=== PATIENT | female | born 1960 | race Caucasian/White ===

== ENCOUNTER → 2018-01-29 | Outpatient (CLI) | payer BC ==
[2014-12-21 12:55] VITALS: BP 145/77
[~2018-01-29] MED LIST: DULO30CA2 PO
--- NOTE | 2018-01-29 17:11 | KCIC ---
Bilateral digital screening mammograms: Reason for examination: Routine screening. Comparison is made to previous studies dated 12/21/2014 and 02/23/2014. Interpretation was made with the benefit of CAD. The skin and nipples show no abnormalities. No abnormal axillary lymph nodes are seen. The breast parenchyma is extremely dense. (Breast density: Category D.) There appears to be a new 1 cm circumscribed nodule at the 1:00 position posteriorly in the left breast which probably represents a cyst. There also appears to be an 8 mm circumscribed nodule posterior centrally in the right breast also likely representing a cyst. Further evaluation with ultrasound is recommended. There are no suspicious calcifications or architectural distortion. Impression: New circumscribed nodules seen bilaterally. This patient has history of cysts and these likely represent cysts. Recommend further evaluation with ultrasound. Your patient's mammogram demonstrates that she has dense breast tissue (breast density category C or D), which could hide abnormalities, and if she has other risk factors for breast cancer that have been identified, she might benefit from supplemental screening tests that may be suggested by you as her ordering physician. Dense breast tissue, in and of itself, is a relatively common condition. Therefore, this information is not provided to cause undue concern, but rather to raise your awareness and to promote discussion with your patient regarding the presence of other risk factors, in addition to dense breast tissue. Your patient's mammography results will be sent to her. BI-RAD Category 0: Incomplete. Needs additional imaging evaluation. "Our facility is accredited by the [employer] Mammography Program." This patient's information has been entered into a reminder system for the patient to be notified with the results of her examination and a target date for the next mammogram. Electronically signed by: Mag Russo MD (01/29/2018 5:07 PM) [id number]
== END | disposition home or self-care (01) ==
LOC: KCIC MAMMO 14:00
PROVIDERS: ATTEND Obstetrics & Gynecology
DX: Z12.31 Encounter for screening mammogram for malignant neoplasm of breast (principal)
CPT/HCPCS: 77067

== ENCOUNTER → 2018-02-07 | Outpatient (CLI) | payer BC ==
[2014-12-21 12:55] VITALS: BP 145/77
--- NOTE | 2018-02-07 10:42 | RAD ---
Indication: Callback for abnormal mammogram. TECHNIQUE: Bilateral Limited breast ultrasound. COMPARISON: Previous ultrasound from 11/23/2014. FINDINGS: Right breast: Multiple lesions are as follows: 1.4 x 0.7 x 1.3 cm oval-shaped anechoic mass in the right breast at 11:30 position 1 cm from the nipple with posterior acoustic enhancement and no internal vascularity compatible with simple cyst. 1.2 x 0.8 x 1.3 cm oval-shaped hypoechoic mass without posterior shadowing but with faint internal vascularity which is wider than taller. Left breast: There is a 0.9 x 0.6 x 0.7 cm anechoic round mass at 1:00 position approximately 1 cm from the nipple with posterior acoustic enhancement and no internal vascularity compatible with simple cyst. IMPRESSION: 1. Bilateral breast simple appearing cysts. 2. Solid mass in the right breast without apparent malignant features. Similar masses were also seen on previous ultrasound from 11/23/2014 and were biopsied. Correlate with previous breast biopsy results. BI-RADS 3: Probably benign. Follow-up right breast ultrasound in 6 months recommended. Electronically signed by: Raúl Ascencio DO (02/07/2018 10:38 AM) [facility]
== END | disposition home or self-care (01) ==
LOC: US 09:56
PROVIDERS: ATTEND Obstetrics & Gynecology
DX: N63.11 Unspecified lump in the right breast, upper outer quadrant (principal); N63.21 Unspecified lump in the left breast, upper outer quadrant
CPT/HCPCS: 76641

== ENCOUNTER → 2018-09-08 | Outpatient (CLI) | payer BC ==
[2014-12-21 12:55] VITALS: BP 145/77
--- NOTE | 2018-09-08 15:04 | KCIC ---
Right breast ultrasound HISTORY: Follow-up of probably benign right breast mass. COMPARISON: Right breast ultrasound February 07, 2018 and priors. FINDINGS: 1.2 cm simple cyst right breast 11:30 position 1 cm from the nipple stable. Separately at the right breast 12:00 position 1 cm from the nipple there is an 1.2 cm oval hypoechoic circumscribed nonshadowing complicated cyst or solid mass, this is stable to January 2018. Separately at the right breast 1:00 position 1 cm from the nipple adjacent of the cyst there is a 0.8 cm parallel hypoechoic nonshadowing mass the superficial margin somewhat obscured by shadowing from the overlying nipple, this is stable from January 2018. Findings remain probably benign. IMPRESSION: Probably benign right breast hypoechoic complex cysts or solid masses most likely fibroadenomas. Attention on follow-up right breast ultrasound in 6 months is advised to document continued stability. BI-RADS Category 3: Probably benign Electronically signed by: Gelacio Lockhart MD (09/08/2018 3:01 PM) [id number]
== END | disposition home or self-care (01) ==
LOC: KCIC US 12:55
PROVIDERS: ATTEND Obstetrics & Gynecology
DX: N60.01 Solitary cyst of right breast (principal)
CPT/HCPCS: 76641

== ENCOUNTER → 2019-05-06 | Outpatient (CLI) | payer BC ==
[2014-12-21 12:55] VITALS: BP 145/77
--- NOTE | 2019-05-06 14:24 | KCIC ---
Pelvic ultrasound to include transabdominal and transvaginal imaging 05/06/2019 CLINICAL HISTORY: BRCA2 mutation. Postmenopausal. TECHNIQUE: Using the distended urinary bladder as a sonographic window, a real-time ultrasound examination of the pelvis was performed. Additionally in an attempt to better evaluate the uterus and adnexa, a transvaginal ultrasound study was performed. Multiple images were obtained. FINDINGS: The uterus is within normal limits in size and echogenicity. It measures 5.8 x 3.5 x 2.9 cm in longitudinal, transverse, and AP dimensions. No focal abnormality of the uterus is seen. The endometrial echo complex measures 1.2 mm in thickness which is within normal limits. Both ovaries are within normal limits in size and echogenicity. The right ovary measures 2.5 x 1.9 x 1.6 cm in size. The left ovary measures 2.3 x 2.2 x 0.9 cm in size. Normal color-flow and pulse doppler imaging to both ovaries is seen. No adnexal mass is noted. No free fluid is seen. IMPRESSION: Negative study. Electronically signed by: Anupam Tan MD (05/06/2019 2:21 PM) [facility] [place]
--- NOTE | 2019-05-06 15:20 | KCIC ---
Bilateral diagnostic digital mammograms: Reason for examination: Follow-up examination for right breast nodules. Routine left breast exam. Comparison is made to previous study dated 01/29/2018. Interpretation was made with the benefit of CAD. The skin and nipples show no abnormalities. No abnormal axillary lymph nodes are seen. The breast parenchyma is extremely dense. (Breast density: Category D.) There continues to be some nodularity anterior superiorly right breast which shows no significant change. There are no new dominant masses, suspicious calcifications or architectural distortion. Impression: Nodular asymmetry in the anterior superior right breast. Ultrasound to follow. Your patient's mammogram demonstrates that she has dense breast tissue (breast density category C or D), which could hide abnormalities, and if she has other risk factors for breast cancer that have been identified, she might benefit from supplemental screening tests that may be suggested by you as her ordering physician. Dense breast tissue, in and of itself, is a relatively common condition. Therefore, this information is not provided to cause undue concern, but rather to raise your awareness and to promote discussion with your patient regarding the presence of other risk factors, in addition to dense breast tissue. Your patient's mammography results will be sent to her. BI-RAD Category 0: Incomplete. Needs additional imaging evaluation. Right breast ultrasound: Comparison is made to previous studies dated 09/08/2018 and 02/07/2018. Ultrasound examination of the right breast and axilla was performed. At the 11:30 position 1 cm from the nipple, there continues to be a 9.5 mm cyst. In the 12:00 position 1 cm from the nipple, there continues to be a 1.1 cm hypoechoic circumscribed lesion which is unchanged and probably represents a complicated cyst. In the 1:00 position 1 cm from the nipple, there continues to be a 9.5 mm hypoechoic fibrocystic lesion. No suspicious-appearing nodules are seen. No significant interval change has occurred. No abnormal appearing lymph nodes are seen in the axilla. IMPRESSION: No significant interval change in the nodules at the 11:30, 12:00 and 1:00 positions. No suspicious nodules are seen. Recommend routine mammographic follow-up. BI-RADS Category 2: Benign. "Our facility is accredited by the [employer] Mammography Program." This patient's information has been entered into a reminder system for the patient to be notified with the results of her examination and a target date for the next mammogram. Electronically signed by: Mag Russo MD (05/06/2019 3:17 PM) [id number]
== END | disposition home or self-care (01) ==
LOC: KCIC MAMMO 08:27
PROVIDERS: ATTEND Obstetrics & Gynecology
DX: N64.89 Other specified disorders of breast (principal); N63.11 Unspecified lump in the right breast, upper outer quadrant; N63.12 Unspecified lump in the right breast, upper inner quadrant; Z78.0 Asymptomatic menopausal state
CPT/HCPCS: 76641; 76830; 76856; 77066

== ENCOUNTER → 2020-10-20 | Outpatient (CLI) | payer BC ==
[2014-12-21 12:55] VITALS: BP 145/77
--- NOTE | 2020-10-20 11:02 | KCIC ---
Bilateral digital screening mammograms with 3-D tomosynthesis: Reason for examination: Routine screening. Comparison is made to previous studies dated back to 12/21/2014. Bilateral mammograms in CC and oblique projections were obtained with 2-D imaging and 3-D tomosynthes is imaging on a Siemens Inspiration unit and reviewed on the workstation. Interpretation was made hema clark the benefit of CAD. The skin and nipples show no abnormalities. No abnormal axillary lymph nodes are seen. The breast par enchyma is heterogeneously dense. (Breast density: Category C.) There are circumscribed nodules again seen in the right breast which correspond to cyst seen previously on ultrasound. There are some scat tered punctate benign-appearing calcifications. There are no new dominant masses, suspicious calcific ations or architectural distortion. Impression: No evidence of malignancy. Recommend routine screening. Your patient's mammogram demonstrates that she has dense breast tissue (breast density category C or D), which could hide abnormalities, and if she has other risk factors for breast cancer that have bee n identified, she might benefit from supplemental screening tests that may be suggested by you as her ordering physician. Dense breast tissue, in and of itself, is a relatively common condition. Therefo re, this information is not provided to cause undue concern, but rather to raise your awareness and t o promote discussion with your patient regarding the presence of other risk factors, in addition to d ense breast tissue. Your patient's mammography results will be sent to her. BI-RAD Category 2: Benign. "Our facility is accredited by the [employer] Mammography Program." This patient's information has been entered into a reminder system for the patient to be notified wit h the results of her examination and a target date for the next mammogram. Electronically signed by: Mag Russo MD (10/20/2020 11:00 AM) [id number]
== END ==
LOC: KCIC MAMMO 08:04
PROVIDERS: ATTEND Obstetrics & Gynecology
DX: Z12.31 Encounter for screening mammogram for malignant neoplasm of breast (principal)
CPT/HCPCS: 77063; 77067

== ENCOUNTER → 2020-12-23 | Outpatient (CLI) | payer BC ==
[2014-12-21 12:55] VITALS: BP 145/77
[~2020-12-23] MED LIST changes: +HYDR-2761 PO; +LISI10TA16 PO
[2020-12-23 12:41] LABS: BASO # 0.1 x10^3/uL (0.0-0.2); BASO % 1 % (0-3); EOS # 0.1 x10^3/uL (0.0-0.7); EOS % 3 % (0-3); HEMATOCRIT 39.9 % (36.0-47.0); HEMOGLOBIN 13.7 g/dL (12.0-15.5); LYMPH # 2.1 x10^3/uL (1.0-4.8); LYMPH % 43 % (24-48); MEAN CORPUSCULAR HEMOGLOBIN 33 pg (25-35); MEAN CORPUSCULAR HGB CONC 34 g/dL (31-37); MEAN CORPUSCULAR VOLUME 95 fL (79-100); MONO # 0.4 x10^3/uL (0.0-1.1); MONO % 8 % (0-9); NEUT # 2.2 x10^3/uL (1.8-7.7); NEUT % 46 % (31-73); PLATELET COUNT 376 x10^3/uL (140-400); RED BLOOD COUNT 4.22 x10^6/uL (3.50-5.40); RED CELL DISTRIBUTION WIDTH 12.7 % (11.5-14.5); WHITE BLOOD COUNT 4.9 x10^3/uL (4.0-11.0)
--- NOTE | 2020-12-23 12:42 | EKG ---
[facility] [address] [place] [address] Test Date: 2020-12-23 Test Time: 12:43:32 Pat Name: GIOVANA HUDSON Department: Room: Gender: F Bag Sealer: ELVIA : 1960 Requested By: MICHAEL PERKINS Order Number: [id number] Reading MD: Brett Villalpando Measurements Intervals Cisco Rate: 76 P: 0 WI: 110 QRS: 64 QRSD: 76 T: 30 QT: 394 QTc: 443 Interpretive Statements SINUS RHYTHM MINIMAL NON SPECIFIC ST T WAVE CHANGES Electronically Signed On 12-28-2020 13:37:30 CDT by Brett Villalpando
[2020-12-23 12:53] LABS: ALBUMIN 4.1 g/dL (3.4-5.0); ALBUMIN/GLOBULIN RATIO 1.1 (1.0-1.7); CALCIUM 9.2 mg/dL (8.5-10.1); CREATININE 0.9 mg/dL (0.6-1.0); GFR 64.1; POTASSIUM 3.7 mmol/L (3.5-5.1); TOTAL BILIRUBIN 0.4 mg/dL (0.2-1.0); TOTAL PROTEIN 7.8 g/dL (6.4-8.2)
[2020-12-23 12:55] LABS: BILIRUBIN,URINE NEGATIVE (NEG); CLARITY,URINE CLEAR; COLOR,URINE YELLOW; NITRITE,URINE NEGATIVE (NEG); PROTEIN,URINE NEGATIVE (NEG-TRACE); UROBILINOGEN,URINE 0.2 mg/dL (0.2 mg/dL)
[2020-12-23 13:09] LABS: BACTERIA,URINE 0 /HPF (0-FEW); RBC,URINE 0 /HPF (0-2); WBC,URINE RARE /HPF (0-4)
--- NOTE | 2020-12-23 14:15 | RAD ---
EXAM: Chest, 2 views. HISTORY: Hypertension. COMPARISON: None. FINDINGS: 2 views of the chest are obtained. There is no infiltrate, pleural effusion or pneumothorax . The heart is normal in size. IMPRESSION: No acute pulmonary finding. Electronically signed by: Diane Sherman MD (12/23/2020 2:12 PM) [id number]
== END ==
LOC: SURGPAT 11:45
PROVIDERS: ATTEND Obstetrics & Gynecology
DX: Z01.818 Encounter for other preprocedural examination (principal); I10 Essential (primary) hypertension
CPT/HCPCS: 36415; 71046; 80053; 81001; 85025; 93005

== ENCOUNTER 2021-01-04 06:08 | Observation (INO) | payer BC ==
[2020-12-23 12:17] VITALS: BP 134/73
[2020-12-28 15:01] VITALS: BP 134/73
[~2021-01-04] VITALS: Ht 152.4 cm; Wt 57.1 kg
[2021-01-04] VITALS (10 sets, daily range): BP systolic 88–138; BP diastolic 39–78
[~2021-01-04 06:08] MED LIST changes: -HYDR-2761 PO; +HYDROmorphone 2 MG/ML VIAL IVP PRN; -LISI10TA16 PO; +MORPHINE SULFATE 2 MG/ML INJ. IVP PRN; +PROCHLORPERAZINE 10 MG/2 ML VIAL. IVP PRN; +fentaNYL PF VIAL 100 MCG/2 ML VIAL IVP PRN
[2021-01-04] MEDS: IV RINGERS,LACTATED 1000ML 1,000 ML IV SCH ×2 (06:46→10:34)
[2021-01-04] MEDS ORDERED: LISI10TA16 PO (06:48)
[2021-01-04] MEDS ORDERED: ONDANSETRON PF 4 MG/2 ML VIAL. ONE (06:53)
[2021-01-04] MEDS ORDERED: PROPOFOL 10 MG/ML (20ML) VIAL. IV ONE (06:53)
[2021-01-04] MEDS ORDERED: LIDOCAINE 2% PF 5 ML VIAL. ONE (06:53)
[2021-01-04] MEDS ORDERED: MIDAZOLAM HCL/PF 2 MG/2 ML VIAL. ONE (06:54)
[2021-01-04] MEDS ORDERED: fentaNYL PF VIAL 100 MCG/2 ML VIAL ONE (06:54)
[2021-01-04] MEDS ORDERED: DEXAMETHASONE SOD PHOS 4 MG/ML VIAL ONE ×2 (06:54→06:59)
[2021-01-04] MEDS ORDERED: ROCURONIUM 50 MG/5 ML VIAL. ONE (06:54)
[2021-01-04] MEDS ORDERED: GLYCOPYRROLATE 1 MG/5 ML VIAL. ONE (06:55)
[2021-01-04] MEDS ORDERED: NEOSTIGMINE METHYLSULFATE 5 MG/5 ML SYRINGE. ONE ×2 (06:55→09:52)
[2021-01-04] MEDS ORDERED: 0.9 % SODIUM CHLORIDE 20 ML VIAL. IJ ONE (07:13)
[2021-01-04] MEDS ORDERED: INDIGOTINDISULFONATE SODIUM 40 MG/5 ML AMPUL. ONE (07:13)
[2021-01-04] MEDS ORDERED: ESTROGENS, CONJ VAGINAL CREAM 30GM TUBE. ONE (07:13)
[2021-01-04] MEDS ORDERED: BUPIVACAINE-EPI 0.25% 30 ML VIAL KIT. ONE ×2 (07:13→08:07)
[2021-01-04] MEDS ORDERED: SCOPOLAMINE 1.5MG PATCH. TD ONE (07:30)
[2021-01-04] MEDS ORDERED: PHENYLEPHRINE in 0.9% NACL PF 1 MG/10 ML SYRINGE. IV ONE (08:04)
[2021-01-04] MEDS ORDERED: SEVOFLURANE > 120 MINUTES. IH ONE (08:10)
[2021-01-04] MEDS ORDERED: KETOROLAC 30 MG/ML VIAL. ONE (08:11)
[2021-01-04] MEDS ORDERED: HYDROmorphone 2 MG/ML VIAL ONE (09:10)
[2021-01-04] MEDS ORDERED: diphenhydrAMINE 50 MG/ML VIAL IV PRN (10:15)
[2021-01-04] MEDS ORDERED: MAGNESIUM HYDROXIDE 2,400 MG/30 ML ORAL.SUSP. PO PRN (10:15)
[2021-01-04] MEDS ORDERED: ONDANSETRON PF 4 MG/2 ML VIAL. IV PRN (10:15)
[2021-01-04] MEDS ORDERED: CALCIUM CARBONATE 500 MG TAB.CHEW PO PRN (10:15)
[2021-01-04] MEDS ORDERED: MORPHINE SULFATE 2 MG/ML INJ. IV PRN (10:15)
[2021-01-04] MEDS ORDERED: LACTULOSE 20 GM/30 ML SOLUTION. PO PRN (10:15)
[2021-01-04] MEDS ORDERED: MAG HYDROX/ALUMINUM HYD/SIMETH 30 ML ORAL.SUSP PO PRN (10:15)
[2021-01-04] MEDS ORDERED: SIMETHICONE 80 MG TAB.CHEW PO PRN (10:15)
[2021-01-04] MEDS ORDERED: diphenhydrAMINE HCL 25 MG CAPSULE PO PRN (10:15)
[2021-01-04] MEDS ORDERED: oxyCODONE/APAP 5/325 1 TAB TABLET PO PRN (10:15)
[2021-01-04] MEDS ORDERED: 0.9 % SODIUM CHLORIDE 10 ML DISP.SYRIN. IV PRN (10:15)
[2021-01-04] MEDS ORDERED: NALOXONE 0.4 MG/ML VIAL. IV PRN (10:15)
[2021-01-04] MEDS ORDERED: ZOLPIDEM 5 MG TABLET. PO PRN (10:15)
[2021-01-04] MEDS ORDERED: HYDROcodone/APAP 5/325MG 1 TAB TABLET PO PRN (10:15)
[2021-01-04] MEDS ORDERED: ePHEDrine PF IN SALINE 50 MG/10 ML SYRINGE. IV ONE (10:28)
--- NOTE | 2021-01-04 10:30 | PDOC4 ---
BRIEF OPERATIVE NOTE Date: Jan 04, 2021 Pre-Op Diagnosis BRCA 2 and cystocele Post-Op Diagnosis same Procedure Performed LAVH/BSO/anterior repair Surgeon Dr. Erica Trejo Skilled Nursing Case Manager martin Ceron Anesthesiologist Dr. Robles Anesthesia Type: General Blood Loss 50cc IV Fluid 1200cc Urine Output 200cc clear via quintanilla Specimens Obtained cervix, uterus,bilateral tubes and ovaries, anterior vaginal mucosa Findings small uterus, bilateral tubes and ovaries; short cervix; small cystocele, 2 degree rectocele more evident with relaxation and anesthesia Complications none Operative Note [id number] ERICA TREJO MD Jan 04, 2021 10:30
--- NOTE | 2021-01-04 11:45 | OP ---
DATE OF SURGERY: 01/04/2021 PREOPERATIVE DIAGNOSES: BRCA2 and cystocele. POSTOPERATIVE DIAGNOSES: BRCA2 and cystocele plus a second-degree rectocele more evident upon relaxation with anesthesia. PROCEDURE: Laparoscopic-assisted vaginal hysterectomy, bilateral salpingo-oophorectomy and anterior repair. SURGEON: Erica Trejo MD BIG DATA ADMIN: AR Miller ANESTHESIOLOGIST: Charli Robles MD ANESTHESIA: General. BLOOD LOSS: 50 mL. URINE OUTPUT: 200 mL clear via Sánchez catheter. IV FLUIDS: 1200 mL of crystalloid. SPECIMENS: Cervix, uterus, bilateral tubes and ovaries and anterior vaginal mucosa. FINDINGS: She had a small uterus, bilateral tubes and ovaries, a shortened cervix from a prior cone, a small cystocele that was symptomatic and then a more evident second-degree rectocele that was more obvious upon relaxation with anesthesia. COMPLICATIONS: None. DESCRIPTION OF PROCEDURE: This patient was taken to the operating room, where general anesthesia was placed. The patient was placed in a dorsal lithotomy position in [facility]. The patient's abdomen and vagina were both prepped and draped in the normal sterile fashion and a Sánchez catheter had been inserted under sterile technique. Upon my arrival, a time-out was performed. Once everyone agreed on the patient, the site, the procedure, the antibiotics, the procedure was initiated. Attention was turned to the vagina, where a bivalve speculum was placed and a single-tooth tenaculum was used to grasp the anterior lip of the cervix. A 10 mL of 0.25% Marcaine with epinephrine was used to circumferentially inject around the cervix for both hemodissection and hemostatic purposes later. The Valtchev uterine manipulator was placed through the endocervical os, locked on the single-tooth tenaculum and the bivalve speculum was then removed. Top gloves were discarded and changed. Attention was then turned to the abdomen, where a small infraumbilical skin incision was made with the scalpel. A curved Lizy was used to dissect through the subcuticular layer to the fascia. The 5 mm Visiport was used directly into the abdominal cavity. Opening patient pressure was 3 mmHg. Direct abdominal placement was indeed confirmed via the laparoscope. Carbon dioxide gas was used to then appropriately insufflate the abdominal cavity to maintain a pressure of 15 mmHg. Overhead lights were dimmed. The patient was placed in Trendelenburg position. At this point, right and left lower quadrant ports were placed. There were no adhesions on the anterior abdominal wall, so finding an area clear of any vasculature, making a small incision and placing the 5 mm atraumatic trocars in under direct visualization. A 4-5 mL of air was placed in these trocar cuffs laterally. The camera was then moved to one of these lateral ports to check the umbilical port to make sure it was okay. Once it was assured to be in a good spot, clear of anything, it was also insufflated with the 4-5 mL of air in the trocar cuff. Camera was moved back to the midline. The bowel was gently swept back. Left tube and ovary were elevated, finding the ureter coursing low in the pelvis clearly out of the way. The LigaSure was used to cauterize and cut the infundibulopelvic ligament, taking the left tube and ovary per the patient's request. This was done exactly the same on the right, elevating the right tube and ovary, making sure the ureter was coursing low well out of the way and going high on the infundibulopelvic ligament right under the ovary, cauterizing and cutting, taking the right tube and ovary as well, going through underneath the tube to the uterus and then crossing the round ligament on both sides, cauterizing and cutting. The uterus was then pushed cephalad and the bladder flap was grasped with the [place] and the monopolar hook was used to gently cut across this and make the bladder flap sharply and peel it down. Once the bladder was down, the uterine vessels on the right side were obtained and then staying inside this pedicle, hugging the cervix posteriorly, going through the cardinal and broad ligaments, cauterizing and cutting, getting down to the uterosacral on the right side and then crossing contralaterally because I was on the right side, going over to the left, going inside that round pedicle and getting the uterines, staying inside this and staying vertical, hugging the cervix and uterus, going through the cardinal and broad ligaments, cauterizing and cutting with the LigaSure down to the level of the uterosacral ligament, completely free posteriorly, completely free anteriorly. Bladder was down significantly. Uterus was completely blanched. At this point, there was no active bleeding, so all instruments were removed from the abdomen and attention was turned vaginally. At this point, the patient was taken out of the steep Trendelenburg, overhead lights were placed on, single tooth and Valtchev were removed from the vagina. A weighted speculum was placed in the patient's vagina. Thyroid Iesha clamps were placed on the anterior and posterior lips of the cervix respectively. As the cervix was very shortened from her prior cone, I went barely up and I aired on the side of the cervix, made a circumferential incision with the scalpel and just used the plastic Yankauer tip to gently push it up and create that space. Then, using my finger had the open Ray-Og 4 x 4 to gently push it up and off. The anterior cul-de-sac was digitally and bluntly entered. The Ray-Og was passed off and the curved Laverne was placed in the anterior cul-de-sac. Cervix was elevated and the posterior cul-de-sac was entered sharply. A #0 Vicryl stitch was used to secure the posterior peritoneum to the vaginal cuff. It was tagged with a curved Lizy clamp, needle was cut and passed off. The short weighted vaginal speculum was removed and replaced with the long weighted Amy speculum in the posterior cul-de-sac. At this point, curved Matt clamps x 2 were placed on the patient's left uterosacral ligament, where they were doubly clamped with curved Heaneys, cut with curved Melara scissors and suture ligated x 2 with 0 Vicryl. The second one was taken through the vaginal cuff securing uterosacral ligament to the vaginal cuff, tagging it with a straight Lizy clamp and cutting and passing the needle off. This was done exactly the same on the right side, double clamping the uterosacrals with curved Matt's, cutting with curved Melara scissors, suture ligating x 2 with 0 Vicryl, taking the second one through the vaginal cuff, tagging it with a straight Lizy clamp and cutting and passing the needle off. At this point, the entire left side was free. There was a tiny pedicle on the right side that the right angle was placed around and the vaginal LigaSure was used to cauterize and cut the remaining pedicle. Cervix, uterus, bilateral tubes and ovaries were delivered in total and passed off for permanent pathology. A long Allis was used to grasp the anterior bladder peritoneum. A sponge stick was used to examine the pedicles. The long Amy speculum was removed and replaced with the short weighted vaginal speculum. A 2-0 Vicryl was taken through the anterior bladder peritoneum, left uterosacral ligament, posterior peritoneum and right uterosacral ligament, thus closing the peritoneum in a pursestring-like fashion. Once this was done, the right and left uterosacral tags were clipped. Allises were placed on the anterior vaginal cuff. It was injected with a dilute solution of 1 part local to 4 parts injectable saline, 50 of local and 200 of injectable saline; 20 mL was used on the anterior defect. A 15 blade scalpel was used to make a small incision. Allises were placed here and the Metzenbaum scissors were used to open up the defect to about 1-2 cm below the urethra until the rugae appeared and it was no longer stretched out. Once this was done, opening up and fanning them, the Metzenbaums were used to sharply release the edges and the open Ray-Og 4 x 4s were used to gently peel down the bladder off the anterior vaginal mucosa on both sides. Once this was done, 3 or 4 interrupted 2-0 Vicryl sutures were used to reduce the defect and were tagged and then going back and tying them and reducing the defect. The anterior vaginal mucosa was trimmed with the Metzenbaum scissors and then 2-0 Vicryl was used to close the anterior defect and going down into the cuff and tying it to that posterior cuff tag. A few imbricating sutures were placed with 2-0 Vicryl for excellent results and hemostasis. Once this was done, the cuff was completely hemostatic. She was just very dry and with that repair, I did place a little Premarin cream with vaginal packing in there just for moisture and just to help with that, so that was done. Once that was done, all gloves were discarded and changed. All sponge, lap and needle counts had been correct x 2 by OR personnel before going above. At this point, attention was turned above. Overhead lights were turned back up. The patient was placed back in Trendelenburg. Gas was reinsufflated. Copious irrigation revealed hemostasis. Tisseel was placed over the cuff. I did get Kaleigh to place because the Tisseel ran out quickly in the middle. Kaleigh over the anterior bladder area that was peeled down and the ovarian pedicles and just go back over everything. There was nothing welling up. The right and left pericolic gutters were clear. At the beginning, I did look around at the right upper quadrant, bowel, liver that were grossly normal and took pictures of that. All of the upper areas remained hemostatic. The lower area remained white and powdery with nothing welling. The 4-5 mL of air was taken out of all 3 trocar cuffs. They were all removed individually watching the right and left lower quadrant ports come out and were hemostatic and the cuff remained hemostatic through all of this. Gas was released through that infraumbilical port and then it was removed as well. All 3 port sites were closed with 4-0 nylon at the skin and injected with 10 more mL of 0.25% Marcaine with epinephrine. The patient was then awakened from anesthesia and brought to recovery room in stable condition. ERICA DR: Deena TID: [id number]
--- NOTE | 2021-01-04 19:02 | NUR ---
Pt. stated she was only able to void a small amount but her bladder still feels full and uncomfortable. Bladder scanned at 863cc. Dr. Neil richter per SABA LakhaniN.
--- NOTE | 2021-01-04 19:26 | NUR ---
Pt. stated she would like to ambulate and attempt to void first and she would let the night RN know if she is still unable to void for quintanilla to possibly be replaced or a staight cath.
[2021-01-04] MEDS ORDERED: LORazepam 0.5 MG TABLET PO ONE (19:30)
[2021-01-05 03:00] VITALS: BP 107/63
[2021-01-05 05:09] LABS: CREATININE 0.6 mg/dL (0.6-1.0); GFR 102.3; POTASSIUM 3.8 mmol/L (3.5-5.1)
[2021-01-05 07:00] VITALS: BP 109/68
[2021-01-05] MEDS ORDERED: DULoxetine HCL 30 MG CAPSULE.DR PO SCH (09:00)
--- NOTE | 2021-01-05 09:55 | NUR ---
SW following. Discussed with RN, pt from home with , room air, cardaic diet. Pt had surgery on 01/04/21. RN advised no SW needs, anticipates discharge home today. SW will continue to follow.
[2021-01-05 11:00] VITALS: BP 108/66
--- NOTE | 2021-01-05 11:11 | PDOC ---
SURGICAL PROGRESS NOTE DATE: 01/05/21 TIME: 11:08 Subjective Up in bed doing well upon my exam. Pain minimal, scant VB. Only concern was last night trying to initiate urination, but once able to go last night has had no problems since then. Tolerating PO without difficulty Vital Signs Vital Signs Date Time Temp Pulse Resp B/P (MAP) Pulse Ox O2 Delivery O2 Flow Rate FiO2 01/05/21 07:05 Room Air 01/05/21 07:00 98.2 80 16 109/68 (82) 97 98.2 01/04/21 21:54 3.0 I&O Intake and Output 01/05/21 07:00 Intake Total 2000 ml Output Total 1600 ml Balance 400 ml Intake IV Total 2000 ml Output Urine Total 1550 ml Estimated Blood Loss 50 ml # Voids 3 PATIENT HAS A REYES: No General: Alert, Oriented X3, Cooperative, No acute distress HEENT: Atraumatic Heart: Regular rate Extremities: No clubbing, No cyanosis, No tenderness/swelling Skin: No rashes, No breakdown, No significant lesion Neuro: Normal speech Psych/Mental Status: Mental status NL, Mood NL Labs Laboratory Tests Test 01/05/21 03:05 Hematocrit 30.4 % (36.0-47.0) Sodium Level 136 mmol/L (136-145) Potassium Level 3.8 mmol/L (3.5-5.1) Chloride Level 102 mmol/L (98-107) Carbon Dioxide Level 26 mmol/L (21-32) Anion Gap 8 (6-14) Blood Urea Nitrogen 9 mg/dL (7-20) Creatinine 0.6 mg/dL (0.6-1.0) Estimated GFR (Cockcroft-Gault) 102.3 Glucose Level 95 mg/dL (70-99) Calcium Level 8.0 mg/dL (8.5-10.1) Laboratory Tests Test 01/05/21 03:05 Hematocrit 30.4 % (36.0-47.0) Sodium Level 136 mmol/L (136-145) Potassium Level 3.8 mmol/L (3.5-5.1) Chloride Level 102 mmol/L (98-107) Carbon Dioxide Level 26 mmol/L (21-32) Anion Gap 8 (6-14) Blood Urea Nitrogen 9 mg/dL (7-20) Creatinine 0.6 mg/dL (0.6-1.0) Estimated GFR (Cockcroft-Gault) 102.3 Glucose Level 95 mg/dL (70-99) Calcium Level 8.0 mg/dL (8.5-10.1) I have reviewed the following labs, vitals, nursing Cardiovascular: No pertinent hx Pulmonary: No pertinent hx GI: No pertinent hx Heme/Onc: No pertinent hx Psych: Anxiety Endocrine: No pertinent hx Dermatology: No pertinent hx Assessment/Plan POD #1 s/p LAVH/BSO/anterior repair Routine PO care NPV x 6 weeks light/limited activity x 2 weeks keep scheduled follow up in office as scheduled in one week [place] written ok for OTC ibuprofen, prn NO driving on narcotic pain meds or one week Call or return sooner for any other questions or concerns not limited to but including pain unrelieved with pain meds, increased or unexplained VB or T>100.4 Justicifation of Admission Dx: Justifications for Admission: Justification of Admission Dx: Yes MICHAEL PERKINS MD Jan 05, 2021 11:11
--- NOTE | 2021-01-05 11:27 | NUR ---
Dr. Trejo left a paper rx for pain meds. Pt's pharmacy is in [place]. Pharmacy contacted to see if they accepted paper rx, Pharmacy stated they did not unless the had a waiver to do so. they stated she was not on the list. Dr. Trejo paged re: obtaining an electronic rx for pt's pain med so she can d/c home today.
--- NOTE | 2021-01-05 11:57 | NUR ---
Dr. Trejo notified of [place] not accepting written rx for pain meds. She stated she attempted to send electronically but pt's pharmacy declined the attempt. Dr. Trejo stated she spoke in detail with the patient about the rx and the electronic rejection by her pharmacy when she tried to send it to them. Dr. Trejo did not offer any alternatives of pt receiving pain meds at d/c. Spoke with ALESSIA Lozada to see if [place] would accept paper rx, she was uncertain if they did or not. Called a [facility] in [place], they stated they do accept paper rx.
[2021-01-05] MEDS ORDERED: HYDR-2761 PO (12:35)
--- NOTE | 2021-01-05 13:03 | NUR ---
Pt. discharged to home with rx, verbalized understanding of discharge instructions.
[2021-01-05 19:00] VITALS: BP 137/67
--- NOTE | 2021-01-09 15:07 | PATHOLOGY ---
[facility] Accession Number: [id number] . 01 Material submitted: . uterus - UTERUS WITH CERVIX, BILATERAL TUBES AND OVARIES, VAGINAL MUCOSA . 01 Clinical history: . DYSPAREUNIA, CYSTOCELE LAPAROSCOPIC ASSISTED VAGINAL HYSTERECTOMY BS0, ANTERIOR COLPORRHAPHY . 02 Diagnosis: Uterus with attached bilateral fallopian tubes and ovaries, laparoscopic assisted vaginal hysterectomy with bilateral salpingo-oophorectomy: - Atrophic endometrium. - Adenomyosis, uterine corpus, focal. - Congestion of bilateral fallopian tubes. - Involutional changes of bilateral ovaries. (JPM:mary ellen; 01/06/2021) . Segments of squamous mucosa and submucosa, anterior colporrhaphy: - Atrophic changes and erosion of squamous mucosa with focal mild chronic inflammation. (JPM:mml; 01/09/2021) QMS 01/09/2021 1123 Local . 02 Comment: There is no atypia or evidence of malignancy. (JPM:mary ellen; 01/06/2021) . 02 Electronically signed: . John Dickinson MD, Pathologist NPI- [id number] . 01 Gross description: . Fixative: Formalin Labeled: Uterus with cervix bilateral tubes + ovaries vaginal mucosa Specimen received: Uterus with cervix and attached portion of vaginal mucosa, and bilateral fallopian tubes and ovaries Uterus weight: 25 g Uterus: Previously bivalved, 5.3 cm fundus to cervix, 3.4 cm cornu to cornu, 2.5 cm anterior to posterior Serosa: [place]-fisher, dusky and hemorrhagic Cervix: 2.3 x 2.0 cm with an attached portion of vaginal mucosa (1.4 x 0.7 cm) on the posterior half Cervical os: Central, circular and patent, measuring 0.5 cm in diameter The anterior lower uterine neck is inked blue and the posterior lower uterine neck is inked black. Endocervical canal: 2.0 cm in length by 0.3 cm in diameter Endometrial cavity: 1.7 x 1.1 cm Endometrium: [place], brown and smooth Endometrial thickness: 0.1 cm Myometrium: Fisher and unremarkable Myometrium thickness: Up to 1.4 cm Lesions/abnormalities: Also received in the same container are 3 irregular portions of fisher and smooth vaginal mucosa (2.3 x 1.9 x 0.4 cm in aggregate). The 2 largest tissues are trisected and the smallest tissue is bisected. Right fallopian tube: Intact and fimbriated; 4.5 cm in length x 0.5 cm in diameter Right fallopian tube cut surface: Unremarkable Right ovary: 3 g, 2.4 x 1.3 x 1.1 cm Right ovarian cut surface: Unremarkable Left fallopian tube: Intact and fimbriated; 4.8 cm in length x 0.5 cm in diameter Left fallopian tube cut surface: Unremarkable Left ovary: 3 g, 2.2 x 1.7 x 1.1 cm Left ovarian cut surface: Unremarkable . Business [employer]ist sections are submitted as follows: A1: Anterior and posterior cervix to include posterior vaginal mucosa, represented A2: Anterior endomyometrium to serosa and endomyometrial shavings, represented A3: Posterior endomyometrium to serosa and endomyometrial shavings, represented A4: Serosal shavings to include posterior gutter, represented A5: Right fallopian tube and ovary, represented A6: Left fallopian tube and ovary, represented ([facility]; 01/05/2021) A7: Additional portions of vaginal mucosa, entirely submitted ([facility]; 01/06/2021) DKA/DKA 01/06/2021 1141 Local . 02 Pathologist provided ICD-10: N85.8, N80.0 . 02 CPT . 330178 Specimen Comment: A courtesy copy of this report has been sent to [phone] Specimen Comment: Report sent to Performed at: 01 [facility] [address], [place] [id number] MD Puneet Meek MD Phone: [phone] Performed at: 02 [facility] [address], [place] [id number] MD John Dickinson MD Phone: [phone]
== END 2021-01-05 13:03 | disposition home or self-care (01) ==
LOC: SURG 06:08 → 4 NORTH 10:15
PROVIDERS: ADMIT Obstetrics & Gynecology; ATTEND Obstetrics & Gynecology
DX: N81.11 Cystocele, midline (principal); N81.6 Rectocele; N91.2 Amenorrhea, unspecified; N94.10 Unspecified dyspareunia; D25.9 Leiomyoma of uterus, unspecified; Z15.01 Genetic susceptibility to malignant neoplasm of breast; Z15.02 Genetic susceptibility to malignant neoplasm of ovary; Z15.09 Genetic susceptibility to other malignant neoplasm
CPT/HCPCS: 36415; 58552; 80048; 85014; 86850; 86900; 86901; A4314; A4930; G0378; G0379; J0690; J1100; J1170; J1885; J2370; J2704; J2710; J3010; J3480; J3490; 88307; A4657; J2250; J2405